=== PATIENT | female | born 1955 | race African-American/Black ===

== ENCOUNTER 2017-05-08 17:15 | Emergency (ER) | payer OTHER ==
[~2017-05-08] VITALS: Ht 172.7 cm; Wt 68.5 kg
--- NOTE | ~2017-05-08 | EKG ---
[address] [address] ELECTROCARDIOGRAM REPORT Name: ANALY MYERS Room #: [facility]#: [id number] Admission: 05/08/17 Attend Phys: Discharge: 05/08/17 Date of : 51 Report #: [id number] THIS REPORT FOR: //name// [facility] ED Test Date: 2017-05-08 Test Time: 17:43:36 Pat Name: ANALY MYERS Department: Room: Gender: F [employer] Person: MZOOK : 1955 Requested By: Weston Dia Order Number: [id number] MD: Ousmane Quiñonez Measurements Intervals [place] Rate: 67 P: 64 WI: 152 QRS: -15 QRSD: 129 T: 59 QT: 400 QTc: 423 Interpretive Statements Sinus rhythm Leftward axis Compared to ECG 05/29/2000 22:15:18 Leftward axis is now present Electronically Signed On 05-09-2017 7:19:19 INVEST[employer]ATIONS ANALYST by Ousmane Quiñonez [email or web address] <ELECTRONICALLY SIGNED> By: Ousmane Quiñonez MD, [facility] 05/09/17 0719 [id number] 42 Ousmane Quiñonez MD, FACC /EPI
[2017-05-08] MEDS ORDERED: CARDIZEM CD180 MG PO (17:20)
[2017-05-08 17:57] LABS: BASOPHILS 0.8 % (0.0-2.0); EOSINOPHILS 1.4 % (0.0-3.0); HEMATOCRIT 45.5 % (37.0-47.0); HEMOGLOBIN 15.2 gm/dL (12.0-15.0); LYMPHOCYTES 38.8 % (24.0-44.0); MCH 31.1 pg (26.0-34.0); MCHC 33.5 g/dL (28.0-37.0); MCV 92.8 fL (80.0-100.0); MONOCYTES 11.9 % (1.0-8.0); PLATELET COUNT 284 thou/uL (150-400); POLYS 47.1 % (36.0-66.0); RBC 4.91 mil/uL (4.20-5.00); RDW 12.3 % (10.5-14.5); WBC 6.3 thou/uL (4.0-11.0)
[2017-05-08 18:05] LABS: ANION GAP 9 mmol/L (7-16); BUN 18 mg/dL (7-18); CALCIUM 9.6 mg/dL (8.5-10.1); CHLORIDE 107 mmol/L (98-107); CO2 26 mmol/L (21-32); GLUCOSE 102 mg/dL (74-106); POTASSIUM 4.1 mmol/L (3.5-5.1); SODIUM 142 mmol/L (136-145)
[2017-05-08 18:13] LABS: TROPONIN-I < 0.04 ng/mL (<0.06)
[2017-05-08 19:12] LABS: URINE BILIRUBIN NEGATIVE (Negative); URINE BLOOD NEGATIVE (Negative); URINE CLARITY CLEAR; URINE COLOR YELLOW; URINE GLUCOSE-RANDOM* NEGATIVE (Negative); URINE KETONES NEGATIVE (Negative); URINE LEUKOCYTES NEGATIVE (Negative); URINE NITRITE NEGATIVE (Negative); URINE PROTEIN (DIPSTICK) NEGATIVE (Negative); URINE UROBILINOGEN 0.2 E.U./dl (0.2-1.0)
[2017-05-08 20:53] VITALS: BP 112/85
== END 2017-05-08 20:53 | disposition home or self-care (01) ==
LOC: ER 17:15
PROVIDERS: Nurse Practitioner
DX: R07.9 Chest pain, unspecified (principal)